=== PATIENT | male | born 1965 | race Caucasian/White ===

== ENCOUNTER 2016-10-28 10:02 | Emergency (ER) | payer BC ==
[~2016-10-28] VITALS: Ht 177.8 cm; Wt 108.0 kg
[2016-10-28 10:07] VITALS: BP 148/91; PULSE 96; RESP 18; TEMP 98.4; O2SAT 97
[2016-10-28] MEDS ORDERED: LISI40TA PO (10:24)
[2016-10-28] MEDS ORDERED: PRED1 PO (10:24)
[2016-10-28] MEDS ORDERED: HYDR12.56 PO (10:24)
[2016-10-28] MEDS ORDERED: SULFAMETHOXAZOLE-TRIMETHOPRIM DS 800-160 MG TAB PO ONE (10:30)
[2016-10-28] MEDS ORDERED: CEPHALEXIN MONOHYDRATE 500 MG CAP PO ONE (10:30)
[2016-10-28] MEDS ORDERED: MUPIROCIN 2% OINT 22 GM TUBE TOPICAL ONE (10:30)
[2016-10-28] MEDS ORDERED: CEPH-460 PO (10:38)
[2016-10-28] MEDS ORDERED: BACT800T5 PO (10:38)
[2016-10-28] MEDS ORDERED: MUPI2%T TOPICAL (10:38)
[2016-10-28] MEDS ORDERED: IBUP-232 PO (10:39)
--- NOTE | 2016-10-28 10:40 | PD ---
HPI Chief Complaint: Skin Problem Time Seen by Provider: 10:19 Travel History International Travel<30 days: No Contact w/Intl Traveler<30days: No Traveled to known affect area: No History of Present Illness HPI Patient is a 51-year-old male who presents to emergency room with complaints of abscess with cellulitis to his anterior chest wall. Patient reports that 10 days ago, he noticed a pimple to his chest, reports he tried to pop the pimple but was unable to. Patient reports that for the past 10 days, he has noticed increased swelling and redness around areas of chest wall abscess. Patient reports that "I think it got infected." Reports that he is from out of town, he was unable to see his primary care doctor for antibiotics. Patient reports no fevers or chills at this time, patient reports that his tetanus is up-to- date. PFSH Past Medical History Diminished Hearing: No Hypertension: Yes Tetanus Vaccination: < 5 Years Influenza Vaccination: Yes Past Surgical History Surgical History: No Previous Surgery Social History Alcohol Use: No Tobacco Use: No Allergies-Medications (Allergen,Severity, Reaction): Coded Allergies: No Known Allergies (Unverified , 10/28/16) Reported Meds & Prescriptions Reported Meds & Active Scripts Active Ibuprofen 600 Mg Tab 600 Mg PO Q6H PRN Bactroban Topical (Mupirocin) 2 % Cream 1 Applic TOPICAL BID Keflex (Cephalexin) 500 Mg Cap 500 Mg PO Q6H 10 Days Bactrim DS (Sulfamethoxazole-Trimethoprim) 800-160 Mg Tab 2 Tab PO BID 10 Days Reported Prednisone 1 Mg Tab 0 PO DAILY Hydrochlorothiazide 12.5 Mg Tab 12.5 Mg PO DAILY Lisinopril 40 Mg Tab 40 Mg PO DAILY Review of Systems General / Constitutional: No: Fever, Chills Eyes: No: Visual changes HENT: No: Headaches Cardiovascular: No: Chest Pain or Discomfort Respiratory: No: Shortness of Breath Gastrointestinal: No: Abdominal Pain Genitourinary: No: Dysuria Musculoskeletal: No: Pain Skin: Positive Other (abscess to chest wall), No Rash Neurologic: No: Weakness Psychiatric: No: Depression Endocrine: No: Polydipsia Hematologic/Lymphatic: No: Easy Bruising Physical Exam Narrative GENERAL: Well-nourished, well-developed patient. SKIN: Warm and dry. HEAD: Normocephalic. EYES: No scleral icterus. No injection or drainage. NECK: Supple, trachea midline. No JVD or lymphadenopathy. CARDIOVASCULAR: Regular rate and rhythm without murmurs, gallops, or rubs. Patient with 2 cm x 2 cm nonfluctuant abscess to anterior chest wall with areas of surrounding cellulitis, no drainage from abscess RESPIRATORY: Breath sounds equal bilaterally. No accessory muscle use. GASTROINTESTINAL: Abdomen soft, non-tender, nondistended. MUSCULOSKELETAL: No cyanosis, or edema. BACK: Nontender without obvious deformity. No CVA tenderness. Data Data Last Documented VS Vital Signs Date Time Temp Pulse Resp B/P Pulse Ox O2 Delivery O2 Flow Rate FiO2 10/28/16 10:07 98.4 96 18 148/91 97 Room Air Orders Mupirocin 2% Oint (Bactroban 2% Oint) (10/28/16 10:30) Cephalexin (Keflex) (10/28/16 10:30) Sulfamet-Trimeth Ds 800-160 Mg (Bactrim (10/28/16 10:30) MDM Medical Decision Making Medical Screen Exam Complete: Yes Emergency Medical Condition: Yes Interpretation(s) Vital Signs Date Time Temp Pulse Resp B/P Pulse Ox O2 Delivery O2 Flow Rate FiO2 10/28/16 10:07 98.4 96 18 148/91 97 Room Air Differential Diagnosis Abscess, cellulitis, Narrative Course 51-year-old male who presents to emergency room with complaints of infected pimple to his chest wall. Patient reports that he noticed a pimple on his chest wall tenderness ago and tried to pop it, reports that "nothing came out" when he initially tried to pop this pimple, reports that for the past 10 days, the area has been getting increasingly redder and more swollen and painful. Patient concerned for possible abscess to his chest wall. Patient's tetanus is up-to-date. Patient with no fevers or chills, vital signs are stable this time. Patient's chest wall abscess is nonfluctuant in nature, discussed need for antibiotics. Also discussed need for warm compresses to the abscess to bring it to a head. Signs and symptoms of worsening cellulitis was reviewed with patient in detail, he will return to ER if the symptoms progress or worsen or if he develops any fevers or chills. Ultimately, patient will return to the emergency room in 48 hours for reevaluation of his symptoms, and will return earlier if symptoms progress or worsen. Diagnosis Primary Impression: Abscess Patient Instructions: General Instructions Additional Instructions: Please apply warm compresses to chest wall abscess Return to the emergency room if you develop any streaking, fevers or chills or progressing symptoms Please return to the emergency room in 48 hours for wound check as well as for possible I&D Please take all antibiotics as prescribed Return to emergency room as needed Please call your primary care doctor first thing in the morning for earliest follow-up Med/Other Pt SpecificInfo: Prescription(s) given Scripts Ibuprofen 600 Mg [id number] Mg PO Q6H PRN (Pain/Inflammation) #40 TAB Ref 0 Prov:Emma Martinez DO 10/28/16 Mupirocin Topical (Bactroban Topical)2 % Cream1 Applic TOPICAL BID #1 TUBE Ref 0 Prov:Emma Martinez DO 10/28/16 Cephalexin (Keflex)500 Mg [id number] Mg PO Q6H 10 Days Ref 0 Prov:Emma Martinez DO 10/28/16 Sulfamethoxazole-Trimethoprim (Bactrim DS)800-160 Mg Tab2 Tab PO BID 10 Days Ref 0 Prov:Emma Martinez DO 10/28/16 Disposition: 01 DISCHARGE HOME Condition: Stable Emma Martinez DO Oct 28, 2016 10:40
== END 2016-10-28 10:54 | disposition home or self-care (01) ==
LOC: PHED 10:02
DX: L02.213 Cutaneous abscess of chest wall (principal); I10 Essential (primary) hypertension
CPT/HCPCS: 99282